=== PATIENT | male | born 1985 | race Hispanic/Latino ===

== ENCOUNTER 2016-09-26 12:15 | Outpatient (CLI) | payer OTHER ==
--- NOTE | 2016-09-26 14:13 | RAD ---
4 VIEWS RIGHT KNEE: Date: 09/26/16 HISTORY: Right knee pain, complaining of pain for the past 2 years. FINDINGS: AP, lateral, and both oblique views of right knee obtained. Four views of the right knee demonstrate no evidence of right knee fractures, subluxations, or bony lesions. IMPRESSION: Normal 4 views of right knee. POS: [facility]
== END 2016-09-26 12:16 | disposition home or self-care (01) ==
LOC: MADRAD 12:15
PROVIDERS: ATTEND Family Medicine
DX: M25.562 Pain in left knee (principal)